=== PATIENT | female | born 1980 | race Caucasian/White ===

== ENCOUNTER 2018-03-07 05:40 | Day surgery (SDC) | payer OTHER ==
[2018-03-07] MEDS ORDERED: LR 1,000 ML IV ONE (06:10)
[2018-03-07] MEDS ORDERED: LIDOCAINE 1% 2 ML INJ ID PRN (06:10)
[2018-03-07] MEDS ORDERED: BUPIVACAINE 0.25% 30 ML SDV ONE (06:27)
[2018-03-07] MEDS ORDERED: MIDAZOLAM 2 MG/2 ML VIAL IVP ONE (07:13)
[2018-03-07] MEDS ORDERED: MIDAZOLAM 2 MG/2 ML VIAL ONE (07:14)
--- NOTE | 2018-03-07 07:17 | PDANEPAE ---
ANE History of Present Illness Laparoscopy. Ovarian cyst ANE Past Medical History - Cardiovascular History Hx Hypertension: No Hx Arrhythmias: No Hx Chest Pain: No Hx Coronary Artery / Peripheral Vascular Disease: No Hx CHF / Valvular Disease: No Hx Palpitations: No - Pulmonary History Hx COPD: No Hx Asthma/Reactive Airway Disease: No Hx Recent Upper Respiratory Infection: No Hx Oxygen in Use at Home: No Hx Sleep Apnea: No Sleep Apnea Screening Result - Last Documented: Negative - Neurologic History Hx Cerebrovascular Accident: No Hx Seizures: No Hx Dementia: No - Endocrine History Hx Diabetes: No Hypothyroid: No Hyperthyroid: No - Renal History Hx Renal Disorders: Yes Renal History Comment: HX OF KIDNEY STONES - Liver History Hx Hepatic Disorders: No - Neurological & Psychiatric Hx Hx Neurological and Psychiatric Disorders: No - Cancer History Hx Cancer: No - Congenital Disorder History Hx Congenital Disorders: No - GI History Hx Gastrointestinal Disorders: Yes Gastrointestinal History Comment: CONSTIPATION - Other Health History Other Health History: INTERMITTENT LOW BACK PAIN - Chronic Pain History Chronic Pain: Yes (LOW BACK) - Surgical History Prior Surgeries: OVARIAN CYSTECTOMY. APPENDECTOMY. CHILDHOOD EXP SURG ON BLADDER ANE Review of Systems Review of Systems: - Exercise capacity METS (RN): 6 METS ANE Patient History - Allergies Allergies/Adverse Reactions: No Known Allergies Allergy (Verified 03/07/18 06:34) - Home Medications Home medications: home medication list seen and reviewed Home Medications: Colace DAILY 03/02/18 [Last Taken 03/06/18] Herbals/Supplements -Info Only DAILY 03/02/18 [Last Taken 02/28/18] - NPO status NPO Status: no food or drink >8 hours NPO Since - Liquids (Date): 03/06/18 NPO Since - Liquids (Time): 21:30 NPO Since - Solids (Date): 03/06/18 NPO Since - Solids (Time): 19:00 - Anes Hx Anes Hx: no prior problems, post operative nausea - Smoking Hx Smoking Status: Never smoked Marijuana use: Yes - Alcohol Use Alcohol Use: Occasionally - Family Anes Hx Family Anes Hx: none ANE Labs/Vital Signs - Vital Signs Blood Pressure: 124/95 Heart Rate: 78 Respiratory Rate: 16 O2 Sat (%): 99 Height: 165.1 cm Weight: 54.885 kg ANE Physical Exam - Airway Neck exam: FROM Mallampati Score: Class 1 Mouth exam: normal dental/mouth exam - Pulmonary Pulmonary: no respiratory distress, no rales or rhonchi - Cardiovascular Cardiovascular: regular rate and rhythym, no murmur, rub, or gallop - ASA Status ASA Status: I ANE Anesthesia Plan Anesthesia Plan: general endotracheal anesthesia
[2018-03-07] MEDS ORDERED: PROPOFOL/EMULSION 500 MG/50 ML BOTTLE IV ONE (07:25)
[2018-03-07] MEDS ORDERED: PROPOFOL 200 MG/20 ML VIAL ONE (07:25)
[2018-03-07] MEDS ORDERED: fentaNYL 100 MCG/2 ML INJ ONE ×2 (07:25)
--- NOTE | 2018-03-07 07:27 | PDHPUP ---
History & Physical Update H&P update statement: This history and physical update is based on an assessment of the patient which was completed after admission or registration (within 24 hours), but prior to the surgery/procedure. H&P update: H&P reviewed & patient examined, no change in patient's condition since H&P completed
[2018-03-07] MEDS ORDERED: ROCURONIUM 50 MG/5 ML VIAL ONE (07:30)
[2018-03-07] MEDS ORDERED: LIDOCAINE 2% 5 ML SDV ONE (07:32)
[2018-03-07] MEDS ORDERED: DEXAMETHASONE 4 MG/ML VIAL ONE (07:48)
[2018-03-07] MEDS ORDERED: KETOROLAC 30 MG/1 ML SDV ONE (07:49)
[2018-03-07] MEDS ORDERED: HYDROCODONE/APAP 5/325 TAB PO PRN (08:48)
[2018-03-07] MEDS ORDERED: ALBUTEROL 3 ML DEYVIAL IH PRN (08:48)
[2018-03-07] MEDS ORDERED: fentaNYL 100 MCG/2 ML INJ IVP PRN (08:48)
[2018-03-07] MEDS ORDERED: ACETAMINOPHEN 500 MG TAB PO PRN (08:48)
[2018-03-07] MEDS ORDERED: NALOXONE HCL 0.4 MG/ML INJ IVP PRN (08:48)
[2018-03-07] MEDS ORDERED: HYDROmorphONE/DILAUDID 1 MG/ML INJ IVP PRN (08:48)
[2018-03-07] MEDS ORDERED: ONDANSETRON 4 MG/2 ML VIAL IVP PRN (08:48)
[2018-03-07] MEDS ORDERED: LR 500 ML IV PRN (08:48)
[2018-03-07] MEDS ORDERED: oxyCODONE IR 5 MG TAB PO PRN (08:48)
[2018-03-07] MEDS ORDERED: PROMETHAZINE HCL 25 MG/ML INJ IVP PRN (08:48)
[2018-03-07] MEDS ORDERED: GLYCOPYRROLATE 0.2 MG/1 ML VIAL ONE ×2 (08:51)
[2018-03-07] MEDS ORDERED: NEOSTIGMINE METHYLSULFATE 5 MG/5 ML SYR ONE (08:51)
[2018-03-07] MEDS ORDERED: HYDROCODONE/APAP 5/325 TAB ONE (09:31)
--- NOTE | 2018-03-07 10:01 | POSTOPPROG ---
Post Op Note Date of Operation: 03/07/18 Surgeon: Marleny Combs Anesthesiologist: Judy Virk MD Anesthesia: GET(General Endotracheal) Pre-op Diagnosis: symptomatic pelvic mass Post-op Diagnosis: Dermoid mass Indication: painful mass Procedure: L/s removal of dermoid and RSO Findings: 8 cm dermoid cyst, torsed Inf/Abcess present in the surg proc area at time of surgery?: No EBL: Minimal Complications: none
--- NOTE | 2018-03-07 11:07 | GOP ---
[f rep st] OPERATIVE REPORT DATE OF OPERATION: 03/07/2018 SURGEON: Marleny Combs MD ANESTHESIA: General endotracheal. ANESTHESIOLOGIST: Judy Virk MD. PREOPERATIVE DIAGNOSIS: Symptomatic pelvic mass, likely dermoid. POSTOPERATIVE DIAGNOSIS: Right, very large dermoid mass. PROCEDURE PERFORMED: Laparoscopic removal of dermoid mass plus right salpingo-oophorectomy. FINDINGS: Right pelvic mass which is the dermoid and this is sitting in the posterior cul-de-sac. I t is torsed completely 2 times, and the fallopian tube is involved with the torsion. There is no blo od in the cul-de-sac, and the left ovary is within normal limits and uterus is within normal limits. Abdominal survey as well showed no abnormality and appendix previously removed. See her procedure. ESTIMATED BLOOD LOSS: Minimal. INDICATIONS: Patient is a 37-year-old G0 who has an IUD for control and was noted to have low back pain as well as frontal pelvic pain. Ultrasound ordered and this showed an 8 cm pelvic mass. B ecause it had multiple different complex features, an MRI was ordered to evaluate for the type of pel brenda mass, and MRI returned as 8 cm dermoid cyst on the right ovary. The patient desires definitive t reatment and she does have a history of 10 years ago right-sided dermoid cyst, and the cyst was remov ed at this time. Patient desires removal of the right ovary because of her recurrence with the dermo id cyst, and she is comfortable with removal of right ovary. She states at this time she is not inte rested in childbearing. DESCRIPTION OF PROCEDURE: With informed consent signed, patient taken to the operating room, placed under general anesthesia without complication, placed in the low dorsal lithotomy position, prepped a nd draped in the usual fashion, and Valentin catheter placed. Tenaculum placed on the anterior lip of t he cervix and Scot cannula placed into the cervical os for uterine manipulation. An incision made in the inferior aspect of the umbilicus and Veress needle placed with ease into the abdominal cavity wh ich was then insufflated with carbon dioxide gas. Once an adequate pneumoperitoneum was developed, a 5 mm trocar placed and then a 5 mm laparoscope placed with 30 degree lens. A 5 mm incision made in the suprapubic midline area and then a 10 mm incision made in the left lower quadrant. All 3 incisio ns were pre injected with 0.25% Marcaine. Findings as noted above. A grasper was placed on this dermoid mass, and the mass was un torsed and also noted to not be necrot ic. The traction was placed on the mass with the grasper with the suprapubic port, and then the 10 m m gyrus was used to resect first infundibulopelvic ligament and then the utero-ovarian ligament, and then the fallopian tube was removed as well as resection across the broad ligament. Hemostasis was n oted. Once the mass and ovary were free, the endobag was placed into the pelvis and I had to use the larger bag because the mass was so big. The mass was completely placed into the bag and brought up to the left lower quadrant incision. Of note I had to make a larger incision to be able to put a 15 mm port in there. Then the mass was brought up to the incision site and opened and drained outside o f the abdomen. Once the mass was small enough, I was able to remove it from the incision site. Next, the abdomen was copiously irrigated and again no dermoid debris was in the abdomen and hemostas is was noted. The left lower quadrant incision was closed with a 2-0 Vicryl running stitch and then the 3 incision sites were closed with 3-0 Vicryl and Steri-Strips placed. The tenaculum and Scot can nula removed from the cervix, and patient was placed in the supine position, awakened in the operatin g room, taken to recovery room in stable condition. Tolerated the procedure well. COMPLICATIONS: None. Copy requested to: Dr. Jareth Vazquez CO /[id number]/MODL
[2018-03-07 11:32] VITALS: BP 114/84
== END 2018-03-07 11:12 | disposition home or self-care (01) ==
LOC: FSGY 05:40
PROVIDERS: ATTEND Obstetrics & Gynecology Gynecology
PROC: 0UB04ZX Excision of Right Ovary, Percutaneous Endoscopic Approach, Diagnostic (ICD-10-PCS; principal; 2018-03-07 07:15)
PROC: 0UB54ZZ Excision of Right Fallopian Tube, Percutaneous Endoscopic Approach (ICD-10-PCS; principal; 2018-03-07 07:15)
DX: D27.0 Benign neoplasm of right ovary (principal)
CPT/HCPCS: J1100; J1885; J2250; J2704; J2710; J3010